=== PATIENT | female | born 1970 | race Caucasian/White ===

== ENCOUNTER 2018-02-19 21:23 | Emergency (ER) | payer OTHER ==
[~2018-02-19] VITALS: Wt 81.6 kg
[~2018-02-19 21:23] MED LIST: AMOXICILLIN500 MG PO; ANTIBIOTIC O500 U/GM TP; BACTRIM DS 8001 TA1 PO; CLARITIN10 MG PO; CLEOCIN150 MG PO; MEDROL DOSEPAK4 MG PO; NAPROSYN500 MG PO; SINGULAIR10 MG PO; TRAMADOL HCL50 MG PO; ULTRAM50 MG PO; VIBRAMYCIN100 MG PO; WELLBUTRIN75 MG PO; ZANTAC 150150 MG PO; ZOLOFT100 MG PO
== END 2018-02-19 23:44 | disposition home or self-care (01) ==
LOC: ED 21:23
DX: S61.314A Laceration without foreign body of right ring finger with damage to nail, initial encounter (principal); Z88.2 Allergy status to sulfonamides; Z88.8 Allergy status to other drugs, medicaments and biological substances; Z88.1 Allergy status to other antibiotic agents; Z88.6 Allergy status to analgesic agent; Z98.51 Tubal ligation status; Z23 Encounter for immunization; W26.8XXA Contact with other sharp object(s), not elsewhere classified, initial encounter; Y93.89 Activity, other specified; Y92.89 Other specified places as the place of occurrence of the external cause; Y99.8 Other external cause status

== ENCOUNTER 2018-06-04 22:05 | Emergency (ER) | payer OTHER ==
[2018-06-04] MEDS ORDERED: CHLORASEPTIC S177 ML MM (23:50)
[2018-06-04] MEDS ORDERED: Zofran4 MG SL (23:50)
== END 2018-06-05 00:05 | disposition home or self-care (01) ==
LOC: ED 22:05
DX: J06.9 Acute upper respiratory infection, unspecified (principal); Z88.6 Allergy status to analgesic agent; Z88.2 Allergy status to sulfonamides

== ENCOUNTER → 2019-02-07 | Outpatient (CLI) | payer OTHER ==
[~2019-02-07] MED LIST changes: +CHLORASEPTIC S177 ML MM; +Zofran4 MG SL
== END | disposition home or self-care (01) ==
LOC: RAD 10:19
DX: M79.645 Pain in left finger(s) (principal); M79.89 Other specified soft tissue disorders